=== PATIENT | male | born 1945 | race Caucasian/White ===

== ENCOUNTER 2024-04-09 09:33 | Emergency (ER) | payer OTHER, MEDICARE ==
[~2024-04-09] VITALS: Ht 172.7 cm; Wt 59.0 kg
[2024-04-09] MEDS: acetaMINOPHEN 500 MG TABLET PO ONE (10:14)
--- NOTE | 2024-04-09 10:25 | ERN ---
General Chief Complaint: Mechanical Fall Stated Complaint: FALL Time Seen by MD: 09:34 Source: patient, EMS History of Present Illness Initial Comments PATIENT IS A AN 79-YEAR-OLD MALE COMING IN DUE TO SLIP AND FALL. PATIENT STATES THAT HE WAS WALKING SLIP LANDING IN HIS RIGHT KNEE AND HIS BUTTOCKS. HE STATES HE WAS PAIN IN HIS RIGHT KNEE IN HIS LEFT HIP WELL BUTTOCKS. NO OTHER CURRENT COMPLAINT. NO LOSS OF CONSCIOUSNESS Allergies: Coded Allergies: No Known Drug Allergies (Unverified Allergy, Unknown, 04/09/24) Past Medical History Past Medical History: Hypertension Past Surgical History: Other Surgical History Other: R LEG SX ROS Dictation CONSTITUTIONAL: NO CHILLS, NO FEVER, NO WEAKNESS, NO DIAPHORESIS, NO MALAISE. HEAD/FACE: NO SIGNS OF TRAUMA. EENT: NO EYE PAIN, NO BLURRED VISION, NO TEARING, NO DOUBLE VISION, NO EAR PAIN, NO EAR DISCHARGE, NO NOSE PAIN, NO NASAL CONGESTION, NO THROAT PAIN, NO THROAT SWELLING, NO MOUTH PAIN. RESPIRATORY: NO COUGH, NO ORTHOPNEA, NO SOB, NO STRIDOR, NO WHEEZING. CARDIOVASCULAR: NO CHEST PAIN, NO EDEMA, NO PALPITATIONS, NO SYNCOPE. GASTROINTESTINAL/ABDOMINAL: NO ABDOMINAL PAIN, NO CONSTIPATION, NO DIARRHEA, NO NAUSEA, NO VOMITING. GENITOURINARY: NO ABNORMAL DISCHARGE, NO DYSURIA, NO FREQUENT URINATION, NO HEMATURIA. NO COMPLAINTS OF PAIN IN THE GENITALS. MUSCULOSKELETAL: NO BACK PAIN, NO GOUT, JOINT PAIN, NO JOINT SWELLING, MUSCLE PAIN, MUSCLE STIFFNESS, NO NECK PAIN. INTEGUMENTARY: NO CHANGE IN COLOR, NO CHANGE IN HAIR/NAILS, NO DRYNESS, NO LESION, NO LUMPS, NO RASH. NEUROLOGICAL/PSYCH: NO ANXIETY, NOT DEPRESSED, NO EMOTIONAL PROBLEM, NO HEADACHE, NO NUMBNESS, NO PRE-EXISTING DEFICIT, NO HISTORY OF SEIZURES, NO TREMORS, NO WEAKNESS. HEMATOLOGIC/LYMPHATIC: NOT ANEMIC, NO HISTORY OF BLOOD CLOTS, NO APPARENT BLEEDING, NO BRUISING, GLANDS NOT SWOLLEN. ALL SYSTEMS NEGATIVE, EXCEPT NOTED. Physical Exam Physical Exam Dictation VITAL SIGNS: REVIEWED. GENERAL APPEARANCE: ALERT, ORIENTED X3, NO ACUTE DISTRESS, OBESE. HEAD AND FACE: NON-TRAUMATIC. EYES: PERRL, PINK CONJUNCTIVAS, EYELID NO TRAUMA, ANTERIOR CHAMBER CLEAR. EARS: PINNAS INTACT AND NO SIGNS OF TRAUMA OR ERYTHEMA. EAR CANALS CLEAR AND NO DISCHARGE. TMS NO ERYTHEMA. NOSE: NO DISCHARGE, NO BLEEDING. OROPHARYNX: MOUTH NORMAL, TEETH NO CARIES, TONGUE PINK. PHARYNX CLEAR, NO ERYTHEMA. TONSILS NO EXUDATES, NO ABSCESSES NOTED. MUCOUS MEMBRANE MOIST. NECK: SUPPLE, NON-TENDER, NO THYROMEGALY, NO MASSES, NO JVD, NO BRUITS. BREAST: DEFERRED. CHEST: NO TENDERNESS, NO CREPITUS, NO PARADOXICAL MOVEMENT, NO RETRACTIONS. LUNGS: CLEAR, WELL-VENTILATED, SYMMETRIC, NO RALES, NO WHEEZING, NO RHONCHI, NO STRIDOR, GOOD BREATH SOUNDS BILATERALLY. HEART: REGULAR RATE, REGULAR RHYTHM, NO MURMUR, NO GALLOPS. VASCULAR: NO PERIPHERAL EDEMA. ABDOMEN: SOFT, POSITIVE BOWEL SOUNDS, NONDISTENDED, NO GUARDING, NONTENDER, NO REBOUND, NO MASSES NO HEPATOMEGALY, NO SPLENOMEGALY, NO LUNA'S SIGN, NO HERNIAS. RECTAL: DEFERRED. GENITAL: DEFERRED. NEUROLOGICAL: NORMAL SPEECH, GROSS MOTOR FUNCTION INTACT, GROSS SENSORY FUNCTION INTACT. MUSCULOSKELETAL: NECK NONTENDER, FULL RANGE OF MOTION, BACK NONTENDER, FULL RANGE OF MOTION. EXTREMITIES: NONTENDER, FULL RANGE OF MOTION. RIGHT KNEE TENDERNESS TO PALPATION TENDERNESS ON FLEXION AND EXTENSION, LEFT HIP TENDERNESS TO PALPATION LOGROLL TENDERNESS, GLUTEAL REGION TENDERNESS WELL. SKIN: COLOR PINK, DRY, NO TURGOR, NO RASH, NO LACERATIONS, NO ABRASIONS, NO CONTUSIONS. LYMPHATICS: DEFERRED. Results Laboratory and Microbiology Labs Reviewed?: Yes EKG/XRAY/US/CT/MRI X-RAY Comment [place] [address] [place] [id number] IMAGING REPORT Signed PATIENT: LILIA PONCE MR#: [id number] : 1945 SEX: M AGE: 79 LOCATION: EDH ORDER 8 STATUS: [facility] REPORT#: [id number] SERVICE REASON: FALL ORDERING PHYSICIAN: LAURA ALVA MD PROCEDURE: LUMB 2 3VW - LUMBAR SPINE 2-3VWS LUMBAR SPINE 2-3VWS HISTORY: Status post fall COMPARISON: None FINDINGS: 3 images of lumbar spine were obtained. Disc space narrowing is seen at L1-2, L2-3, L3-4 and L4-5 levels. There is straightening of normal lordotic curvature which may be related to muscle spasm or positioning. Compression fracture is seen involving T12 with 50% loss of height. Bony osteopenia is seen. Degenerative changes are seen. IMPRESSION: 1. Findings as described above. DICTATED BY: DELVIN REILLY MD DATE: 04/09/241340 ELECTRONICALLY SIGNED BY: DELVIN REILLY MD DATE: 04/09/241343 [facility] [id number] IMAGING REPORT Signed PATIENT: LILIA PONCE MR#: [id number] : 1945 SEX: M AGE: 79 LOCATION: ED ORDER 8 STATUS: REG ER REPORT#: [id number] SERVICE 7 REASON: FALL ORDERING PHYSICIAN: LAURA ALVA MD PROCEDURE: KNEE 3V RT - KNEE 3VWS RT KNEE 3VWS RT HISTORY: Status post fall COMPARISON: None TECHNIQUE: 3 images of right knee were obtained. FINDINGS: There is no acute displaced fracture or dislocation. There is soft tissue swelling. Vascular calcifications are seen. Degenerative changes are seen. IMPRESSION: 1. Findings as described above. DICTATED BY: DELVIN REILLY MD DATE: 04/09/241345 ELECTRONICALLY SIGNED BY: DELVIN REILLY MD DATE: 04/09/241347 [place] [address] [id number] IMAGING REPORT Signed PATIENT: LILIA PONCE MR#: [id number] : 1945 SEX: M AGE: 79 LOCATION: ED ORDER 8 STATUS: [facility] REPORT#: [id number] SERVICE 7 REASON: FALL ORDERING PHYSICIAN: LAURA ALVA MD PROCEDURE: HIP U 2V L - HIP UNILAT 2-3VW LEFT HIP UNILAT 2-3VW LEFT HISTORY: Status post fall COMPARISON: None TECHNIQUE: 3 images of left hip were obtained. FINDINGS: There is no acute displaced fracture or dislocation. There is soft tissue swelling. Vascular calcifications are seen. Joint space narrowing is seen. Degenerative changes are seen. IMPRESSION: 1. Findings as described above. DICTATED BY: DELVIN REILLY MD DATE: 04/09/24 1346 ELECTRONICALLY SIGNED BY: DELVIN REILLY MD DATE: 04/09/24 1349 [facility] MDM: DIFFERENTIAL DIAGNOSIS: FALL, KNEE STRAIN, HIP CONTUSION, PATIENT IS A AN 79-YEAR-OLD MALE COMING IN AFTER HE HAD A SLIP AND FALL. X-RAY DID NOT DISCLOSE ACUTE FINDINGS. LUMBAR SPINE CHRONIC CHANGES. PATIENT WILL BE DISCHARGED IN STABLE CONDITION. ED Course Orders Procedure Category Date Status Time Knee 3vws Rt RAD 04/09/24 Resulted 09:58 Hip Unilat 2-3vw Left RAD 04/09/24 Resulted 09:58 Lumbar Spine 2-3vws RAD 04/09/24 Resulted 09:58 Acetaminophen 500mg PHA 04/09/24 Complete Tab (Tylenol 500mg T 10:00 Current Medications Medications (Trade) Dose Ordered Sig/Haleigh Route PRN Reason Start Time Stop Time Status Last Admin Dose Admin Acetaminophen (TYLenol 500MG TAB) 500 mg ONCE ONCE PO 04/09/24 10:00 04/09/24 10:01 DC 04/09/24 10:14 Vital Signs Date Time Temp Pulse Resp B/P (MAP) Pulse Ox O2 Delivery O2 Flow Rate FiO2 04/09/24 13:49 98.8 90 14 110/76 94 Room Air* 0 21 04/09/24 11:03 98.6 92 16 129/73 98 Room Air* 0 21 04/09/24 09:34 97.9 99 16 97/58 98 Room Air DX & DISP Disposition: Discharge Departure Impression: Primary Impression: Accident due to mechanical fall without injury Additional Impression: Lumbar compression fracture Condition: Stable Additional Instructions: FOLLOW-UP WITH PRIMARY CARE PROVIDER IN 1 TO 2 DAYS. TAKE MEDICATIONS DIRECTED HERE IN THE EMERGENCY ROOM. OKAY TO CONTINUE HOME MEDICATIONS UNLESS OTHERWISE DISCUSSED DURING YOUR VISIT IN THE EMERGENCY ROOM TODAY. RETURN TO YOUR NEAREST EMERGENCY ROOM IF SYMPTOMS WORSEN OR IF THERE IS NO IMPROVEMENT. CALL 911 IF YOU NEED IMMEDIATE ASSISTANCE. TAKE TYLENOL [id number] NEEDED AND IF NO CONTRAINDICATIONS ARE PRESENT. INCREASE ORAL HYDRATION. A WOUND CULTURE OR URINE CULTURE WAS ORDERED HERE IN THE EMERGENCY ROOM DEPARTMENT PLEASE FOLLOW-UP WITH PRIMARY CARE PROVIDER AND ADVISE THEM TO GET REPEAT PORTS FROM OUR FACILITY. IF YOU HAD ANY JANAE WRAP/SPLINTS THAT WERE APPLIED HERE, PLEASE DO NOT REMOVE THEM UNTIL YOU SEE YOUR PRIMARY CARE OR SPECIALTY. REFERRALS: Referrals: CECI JIMENEZ DO (PCP) Time of Disposition: 13:58 LAURA ALVA MD Apr 09, 2024 10:25
--- NOTE | 2024-04-09 13:44 | HMCIMG ---
LUMBAR SPINE 2-3VWS HISTORY: Status post fall COMPARISON: None FINDINGS: 3 images of lumbar spine were obtained. Disc space narrowing is seen at L1-2, L2-3, L3-4 and L4-5 levels. There is straightening of normal lordotic curvature which may be related to muscle spasm or positioning. Compression fracture is seen involving T12 with 50% loss of height. Bony osteopenia is seen. Degenerative changes are seen. IMPRESSION: 1. Findings as described above.
--- NOTE | 2024-04-09 13:48 | HMCIMG ---
KNEE 3VWS RT HISTORY: Status post fall COMPARISON: None TECHNIQUE: 3 images of right knee were obtained. FINDINGS: There is no acute displaced fracture or dislocation. There is soft tissue swelling. Vascular calcifications are seen. Degenerative changes are seen. IMPRESSION: 1. Findings as described above.
[2024-04-09 13:49] VITALS: BP 110/76; PULSE 90; RESP 14; TEMP 98.8; O2SAT 94
--- NOTE | 2024-04-09 13:49 | HMCIMG ---
HIP UNILAT 2-3VW LEFT HISTORY: Status post fall COMPARISON: None TECHNIQUE: 3 images of left hip were obtained. FINDINGS: There is no acute displaced fracture or dislocation. There is soft tissue swelling. Vascular calcifications are seen. Joint space narrowing is seen. Degenerative changes are seen. IMPRESSION: 1. Findings as described above.
== END 2024-04-09 14:10 | disposition home or self-care (01) ==
LOC: EDH 09:33
DX: S22.080A Wedge compression fracture of T11-T12 vertebra, initial encounter for closed fracture (principal); I10 Essential (primary) hypertension; Z98.890 Other specified postprocedural states; W01.0XXA Fall on same level from slipping, tripping and stumbling without subsequent striking against object, initial encounter; Y93.01 Activity, walking, marching and hiking; Y92.89 Other specified places as the place of occurrence of the external cause; Y99.8 Other external cause status
CPT/HCPCS: 72100; 73502; 73562; 99284